=== PATIENT | female | born 1990 | race Caucasian/White ===

== ENCOUNTER → 2019-10-09 | Outpatient (CLI) | payer OTHER ==
[~2019-10-09] VITALS: Ht 172.7 cm; Wt 142.7 kg
[~2019-10-09] MED LIST: MIRENA52 MG IY; NIZORAL SHAMPO120 M1 TP; WELLBUTRIN XL150 MG PO; ZOLOFT 50MG50 MG PO
[2019-10-09 08:26] VITALS: BP 120/80; PULSE 60
== END ==
LOC: LIGHT 08:06
DX: E66.01 Morbid (severe) obesity due to excess calories (principal); Z68.42 Body mass index [BMI] 45.0-49.9, adult; F32.9 Major depressive disorder, single episode, unspecified; K21.9 Gastro-esophageal reflux disease without esophagitis
CPT/HCPCS: G0463

== ENCOUNTER → 2019-10-21 | Outpatient (CLI) | payer OTHER | LOC: LIGHT 11:00 ==

== ENCOUNTER → 2019-10-22 | Outpatient (CLI) | payer OTHER | LOC: LIGHT 10:47 ==

== ENCOUNTER → 2019-10-24 | Outpatient (CLI) | payer OTHER | LOC: BHSO 09:01 ==

== ENCOUNTER → 2019-11-07 | Outpatient (CLI) | payer OTHER | LOC: BHSO 09:48 | DX: F41.1 Generalized anxiety disorder (principal) ==

== ENCOUNTER → 2019-11-07 | Outpatient (CLI) | payer OTHER ==
[~2019-11-07] VITALS: Ht 172.7 cm; Wt 142.9 kg
[2019-11-07 14:30] VITALS: BP 144/76; PULSE 72
== END ==
LOC: LIGHT
DX: E66.01 Morbid (severe) obesity due to excess calories (principal); Z68.42 Body mass index [BMI] 45.0-49.9, adult; K21.9 Gastro-esophageal reflux disease without esophagitis; M54.5 Low back pain
CPT/HCPCS: G0463

== ENCOUNTER → 2019-11-15 | Outpatient (CLI) | payer OTHER ==
[~2019-11-15] MED LIST changes: +CARAFATE 1GM1 G PO; +NORCOELIX PO; +PEPCID 20MG TAB20 MG PO; +ZOFRAN 4MG T4 MG/TAB PO
== END ==
LOC: BHSO 08:51
DX: F41.1 Generalized anxiety disorder (principal)

== ENCOUNTER → 2019-12-13 | Outpatient (CLI) | payer OTHER ==
[~2019-12-13] MED LIST changes: -CARAFATE 1GM1 G PO; -NORCOELIX PO; -PEPCID 20MG TAB20 MG PO; -ZOFRAN 4MG T4 MG/TAB PO
== END ==
LOC: BHSO 13:01
DX: F41.1 Generalized anxiety disorder (principal)

== ENCOUNTER → 2019-12-16 | Outpatient (CLI) | payer OTHER ==
[~2019-12-16] VITALS: Ht 172.7 cm; Wt 143.8 kg
[2019-12-16 13:02] VITALS: BP 146/60; PULSE 88
== END ==
LOC: LIGHT 12:57
DX: E66.01 Morbid (severe) obesity due to excess calories (principal); Z68.42 Body mass index [BMI] 45.0-49.9, adult; K21.9 Gastro-esophageal reflux disease without esophagitis; M54.5 Low back pain
CPT/HCPCS: G0463

== ENCOUNTER 2019-12-23 06:54 | Day surgery (SDC) | payer OTHER ==
[~2019-12-23] VITALS: Ht 172.7 cm; Wt 145.7 kg
[2019-12-23] MEDS ORDERED: PEPCID 20MG TAB20 MG PO (07:29)
[2019-12-23 07:33] VITALS: BP 149/94; PULSE 86; TEMP 97.6
[2019-12-23] MEDS ORDERED: CARAFATE 1GM1 G PO (08:32)
[2019-12-23 08:41] VITALS: BP 164/50; PULSE 85; TEMP 97.5
--- NOTE | 2019-12-23 08:41 | NUR ---
Pt returned to room via cart with Thad RN, Luisana. Pt was able to ambulate to chair with 2 touch assists. Received report from Luisana at that time. Pt awake but "loopy" and telling jokes. Pt denies pain or nausea at this time. Cranberry juice brought per and pt sitting comfortably in chair.
[2019-12-23 08:45] VITALS: BP 137/88; PULSE 96
[2019-12-23 09:01] VITALS: BP 123/93; PULSE 86
--- NOTE | 2019-12-23 09:01 | NUR ---
Pt states that she feels like she is "coming down" back to normal and feeling less "loopy." VSS and WNL. Call light within reach.
--- NOTE | 2019-12-23 09:09 | NUR ---
Pt sitting comfortably in chair telling Geni Parton jokes and giggling. She is easily re-directed and apologizing for "being as high as a kite" from meds from procedure. VSS and WNL. Pt able to drink cranberry juice without problems.
[2019-12-23 09:15] VITALS: BP 155/96; PULSE 85
--- NOTE | 2019-12-23 09:15 | NUR ---
Pt up to BR and was able to ambulate easily and independently with no dizziness or pain. VSS and WNL. Pt alert and oriented and no longer "loopy."
--- NOTE | 2019-12-23 09:25 | NUR ---
Pt states that she is ready to go home and waiting at front entrance for pickup. Reviewed discharge information including educational packet and new medication information. Reviewed signs/symptoms of adverse effects and when to call the dr. Pt agrees with plan and has no further questions. Pt meets criteria for discharge and VSS upon discharge.
== END 2019-12-23 09:25 | disposition home or self-care (01) ==
LOC: SDCO 06:54
DX: K29.30 Chronic superficial gastritis without bleeding (principal); K29.80 Duodenitis without bleeding; K21.9 Gastro-esophageal reflux disease without esophagitis; E66.01 Morbid (severe) obesity due to excess calories; Z68.42 Body mass index [BMI] 45.0-49.9, adult; F32.9 Major depressive disorder, single episode, unspecified; Z20.828 Contact with and (suspected) exposure to other viral communicable diseases; Z79.899 Other long term (current) drug therapy
CPT/HCPCS: J2704; J7120

== ENCOUNTER 2020-01-09 08:39 | Inpatient (IN) | payer OTHER ==
[~2020-01-09] VITALS: Ht 172.7 cm; Wt 127.0 kg
[~2020-01-09 08:39] MED LIST changes: +CARAFATE 1GM1 G PO; +PEPCID 20MG TAB20 MG PO
[2020-02-26] VITALS (389 sets, daily range): BP systolic 135–161; BP diastolic 74–91; PULSE 85–100; TEMP 97.1–98.5; O2SAT 91–100
--- NOTE | 2020-02-26 06:19 | NUR ---
The patient ambulated back to [place] [facility] independently using a steady gait and appeared to tolerate the activity well. Vital signs obtained. Consent signed. 18G IV started in right hand on second attempt, LR infusing without difficulty. Heart Reg. Lungs clear. Bowel sounds audible. Call light is within reach. The patient denies any further needs at this time. Will continue to monitor the patient.
--- NOTE | 2020-02-26 06:56 | NUR ---
Dr. Urbina was notified that the patient's H&P will be need to be updated prior to surgery. He verbalized understanding and is planning to arrive early to complete that.
--- NOTE | 2020-02-26 07:16 | NUR ---
The patient was taken back via cart to the operating room at this time. The patient's chart was sent with her to surgery. The patient's belongings were taken over to the recovery room and will be sent with the patient to her room where is transferred to post operatively.
--- NOTE | 2020-02-26 11:30 | NUR ---
RECEIVED REPORT FROM KEVIN REDD IN PACU. AWAITING ARRIVAL OF PT TO ICU 8.
--- NOTE | 2020-02-26 11:50 | NUR ---
PT ARRIVES VIA STRETCHER TO ICU 8. PT TIRED BUT DOES CRY OUT IN PAIN WITH LITTLE TOUCH TO ABDOMEN. FIVE LAP SITE VISIBLE AND OPEN TO AIR. NOTED ZAHIRA DRAIN TO BULB SUCTION IN LLQ WITH SANGUIOUS DRAINAGE NOTED. FC PATENT AND DRAINING TO GRAVITY. VSS. CALL LIGHT WITHIN REACH, EDUCATION PROVIDED, VERBALIZED UNDERSTANDING. EDUCATED PT ON POC AND RECRUITMENT CONSULTANT PUMP TO START, SEE MAR, VERBALIZED UNDERSTANDING.
--- NOTE | 2020-02-26 20:00 | NUR ---
Assessment complete. Pt is AXO X3, states she has pain in her ABD. RECORD CHANGER ASSEMBLER running. Jacob to DD remains free of complications. States she feels nauseaus. Pt is resting in be dusing her phone and this time and denies needs. Call light within reach.
[2020-02-27] VITALS (320 sets, daily range): BP systolic 114–140; BP diastolic 62–89; PULSE 68–89; TEMP 98.4; O2SAT 81–100
[2020-02-27 05:51] LABS: BASO % 0.2 % (0.0-2.0); EOS % 0.1 % (0-4.0); GRAN # 8.9 (1.4-6.5); GRAN % 72.5 % (42.2-75.2); HEMATOCRIT 37.6 % (37.0-47.0); HEMOGLOBIN 11.9 g/dl (12.5-16.0); LYMPH # 2.4 (1.2-3.4); LYMPH % 19.4 % (20.0-51.0); MEAN CELL VOLUME 88 fl (80.0-100.0); MEAN CORPUSCULAR HEMOGLOBIN 28 pg (27.0-31.0); MEAN CORPUSCULAR HGB CONC 32 g/dl (33.0-37.0); MEAN PLATELET VOLUME 10.9 fl (7.4-10.4); MONO # 0.9 (0.1-0.6); MONO % 7.2 % (1.7-9.3); PLATELET COUNT 273 K/mm3 (130-400); RED BLOOD COUNT 4.28 M/mm3 (4.10-5.30); REDCELL DISTRIBUTION WIDTH-CV 13.4 % (11.5-14.5)
[2020-02-27 06:08] LABS: ALBUMIN 3.7 gm/dL (3.5-5.0); BILIRUBIN,TOTAL 0.4 mg/dL (0.0-1.0); CALCIUM 8.6 mg/dL (8.4-10.2); CREATININE, serum 0.83 (0.52-1.25); POTASSIUM 4.5 mmol/L (3.4-5.0)
--- NOTE | 2020-02-27 07:20 | NUR ---
RECEIVED REPORT FROM KEVIN ALLEN. PT JUST GOT BACK FROM RADIOLOGY VIA WC. TRASNFERRED WELL BUT DOES STATE THAT SHE IS VERY NAUSOUES BUT UNDERSTANDS IT IS NOT TIME FOR ZOFRAN YET. AFTER SETTLING BACK INTO BED FOR A FEW MINUTES PT DOES STATE THAT IT DOES RESIDE SOME. VSS. FC PATENT AND DRAINING TO GRAVITY. BARREL LEVELER SWITCH AND CALL LIGHT WITHIN REACH.
--- NOTE | 2020-02-27 12:20 | NUR ---
ATTEMPTED TO CALL DR RUSSO TO ENSURE PT CAN START EATING REGIMEN AND ABOUT TRANSFER ORDERS. AWAITING FOR CALL BACK FROM PHYSICIAN AFTER LEAVING A MESSAGE TO RETURN CALL.
--- NOTE | 2020-02-27 12:30 | NUR ---
SPOKE WITH DR RUSSO ABOUT RESULTS FROM BARIUM SWALLOW TEST THIS AM AND PT'S CURRENT STATUS. PHYSICIAN STATES TO PLEASE PLACE TRANSFER ORDERS AND DC SEARS AND NO TELEMETRY. PHYSICIAN STATES HE WILL BE BY LATER THIS AFTERNOON TO SEE PT. PT UPDATED ON POC. VERBALIZED UNDERSTANDING.
--- NOTE | 2020-02-27 12:46 | NUR ---
First visit from the charge out clerk. No other needs right now.
--- NOTE | 2020-02-27 13:54 | NUR ---
REPORT CALLED TO KEVIN VAZQUEZ ON SURGICAL. PT TO TRANSFER TO 328
--- NOTE | 2020-02-27 14:40 | NUR ---
PATIENT ADMITED INTO ROOM 328 FROM ICU. PATIENT IS A POST OP [id number]. ABD LAP SITES X6 ARE CD&I. ZAHIRA DRAIN TO COPRESSION WITH SMALL AMOUNTS OF BLOODY DRAINAGE NOTED. ABD IS DISTENDED, FIRM, AND WITH HYPOACTIVE BOWL SOUNDS. PATIENT C/O INTERMITTENT NAUSEA. PATIENT RECENTLY HAD ZOFRAN BEFORE TRANSFERING TO FLOOR. PAIN IS WELL MANAGED WITH DILAUDID COLLEGE ATHLETIC DIRECTOR. IV FLUIDS INFUSING INTO RIGHT HAND VIA PUMP. HEAD TO TOE ASSESSMENT COMPLETE. SCD'S CURRENTLY OFF. CALL LIGHT IN REACH.
--- NOTE | 2020-02-27 16:15 | NUR ---
Parts Driver met with the patient to complete intake. The patient lives in [place] with her Uri and their two children. The patient denies DME use and is independent with ADLs. The patient receives prescriptions and medical care at [facility] on . The patient believes she has advanced directives completed and a copy at [facility] and designates her . The patient plans to return home at discharge. Uri will provide transporation. There are no additional needs
--- NOTE | 2020-02-27 21:00 | NUR ---
PATIENT WENT FOR A WALK IN THE HALLS. STEADY GAIT WITH STANDBY ASSIST. PATIENT IS HAVING LOTS OF NAUSEA. PHENERGEN GIVEN PER ORDERS. MADE PATIENT DROWSY, BUT SHE STATES SHE IS READY TO GO TO SLEEP. REFUSED HER ZOLOFT AND STOOL SOFTENERS BECAUSE SHE WAS TOO NAUSEOUS.
--- NOTE | 2020-02-27 23:07 | NUR ---
the patient was found to be on room air with sat of 96% and RR of 14 alert and oriented RN Phyllis notified she in turn notified RT that the PHARMACY TECHNICIAN INSTRUCTOR was DC'd
[2020-02-28 00:36] VITALS: BP 127/70; PULSE 77; TEMP 98.5
[2020-02-28 04:42] VITALS: BP 114/64; PULSE 76; TEMP 98.2
--- NOTE | 2020-02-28 06:06 | NUR ---
PATIENT IS NOT NAUSEOUS THIS MORNING BUT STILL HAVING PAIN. NORCO GIVEN FOR PAIN. TOOK ANOTHER WALK IN THE HALLS THIS MORNING. FLUIDS RUNNING. PATIENT HAS NO OTHER NEEDS AT THIS TIME.
[2020-02-28 07:13] LABS: BASO # 0.1 (0.0-0.2); BASO % 0.6 % (0.0-2.0); EOS # 0.1 (0.0-0.7); EOS % 0.9 % (0-4.0); GRAN # 5.6 (1.4-6.5); GRAN % 58.4 % (42.2-75.2); HEMOGLOBIN 11.6 g/dl (12.5-16.0); LYMPH # 3.3 (1.2-3.4); MEAN CELL VOLUME 87 fl (80.0-100.0); MEAN CORPUSCULAR HEMOGLOBIN 28 pg (27.0-31.0); MEAN CORPUSCULAR HGB CONC 33 g/dl (33.0-37.0); MEAN PLATELET VOLUME 10.9 fl (7.4-10.4); MONO # 0.5 (0.1-0.6); MONO % 5.6 % (1.7-9.3); PLATELET COUNT 244 K/mm3 (130-400); RED BLOOD COUNT 4.09 M/mm3 (4.10-5.30); REDCELL DISTRIBUTION WIDTH-CV 13.2 % (11.5-14.5)
[2020-02-28 07:24] LABS: HEMATOCRIT 35.5 % (37.0-47.0)
[2020-02-28 07:31] LABS: ALBUMIN 3.5 gm/dL (3.5-5.0); BILIRUBIN,TOTAL 0.4 mg/dL (0.0-1.0); CALCIUM 8.4 mg/dL (8.4-10.2); CREATININE, serum 0.74 (0.52-1.25); POTASSIUM 4.1 mmol/L (3.4-5.0); TOTAL PROTEIN 6.6 gm/dL (6.4-8.2)
[2020-02-28 07:49] VITALS: BP 116/54; PULSE 81; TEMP 98.1
--- NOTE | 2020-02-28 10:00 | NUR ---
Patient is doing well this am. She has been up walking in the hallway. Her nausea is better this morning. She is tolerating a full liquid diet without nausea. Minimal complaints of pain, mostly stated having headaches. She is passing flatus without issues. ZAHIRA drain to bulb suction, dark red drainage to drain. No other changes at this time. Call light within reach.
--- NOTE | 2020-02-28 10:35 | NUR ---
Initial visit; Andres thanked Environmental Coordinator for looking in on her and offering God's blessings and keeping her in Environmental Coordinator's prayers.
[2020-02-28 11:36] VITALS: BP 111/68; PULSE 87; TEMP 98.4
[2020-02-28] MEDS ORDERED: ZOFRAN 4MG T4 MG/TAB PO (12:21)
[2020-02-28] MEDS ORDERED: NORCOELIX PO (12:22)
[2020-02-28] MEDS ORDERED: PEPCID 20MG TAB20 MG PO (12:22)
--- NOTE | 2020-02-28 13:45 | NUR ---
Patient is discharging home. ZAHIRA drain discontinued. Double checked that she could get her norco filled at [facility] before discharge. Zofran and norco given for discharge, for the ride home. She is aware she has to take her script to the pharmacy. She already has a follow up appointment scheduled. She has a good understanding of her diet. Copies of discharge instructions sent with patient. All belongings packed up and sent with patient. IV discontinued. Patient walked out via wheel chair temo Darnell CNA.
== END 2020-02-28 13:45 | disposition home or self-care (01) | DRG 621 ==
LOC: SURG 02-12 07:30 → INPTSU 02-26 05:25 → SURG 02-26 07:30 → ICU 02-26 11:38 → JCC 02-27 14:00
PROVIDERS: ADMIT Surgery
PROC: 8E0W4CZ Robotic Assisted Procedure of Trunk Region, Percutaneous Endoscopic Approach (ICD-10-PCS; 2020-02-26)
PROC: 0D164ZA Bypass Stomach to Jejunum, Percutaneous Endoscopic Approach (ICD-10-PCS; principal; 2020-02-26 07:30)
DX: E66.01 Morbid (severe) obesity due to excess calories (principal); Z68.42 Body mass index [BMI] 45.0-49.9, adult; K21.9 Gastro-esophageal reflux disease without esophagitis; Z90.49 Acquired absence of other specified parts of digestive tract; F32.9 Major depressive disorder, single episode, unspecified; G89.29 Other chronic pain; M54.9 Dorsalgia, unspecified; F50.9 Eating disorder, unspecified
CPT/HCPCS: A4314; C9113; J0690; J1100; J1170; J1650; J1956; J2250; J2405; J2550; J2704; J3010; J3480; J7120